=== PATIENT | male | born 2000 | race Caucasian/White ===

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

== ENCOUNTER 2022-02-22 16:33 | Emergency (ER) | payer MEDICAID, OTHER | END 2022-02-22 17:38 | disposition home or self-care (01) | LOC: BURERS 16:33 | DX: B34.9 Viral infection, unspecified (principal); E03.9 Hypothyroidism, unspecified | CPT/HCPCS: 87081; 87430; 99283 ==

== ENCOUNTER 2022-08-07 13:40 | Emergency (ER) | payer OTHER | END 2022-08-07 14:00 | disposition home or self-care (01) | LOC: BURERS 13:40 | DX: J02.9 Acute pharyngitis, unspecified (principal); T36.0X5A Adverse effect of penicillins, initial encounter; E03.9 Hypothyroidism, unspecified | CPT/HCPCS: 99283 ==

== ENCOUNTER 2023-07-17 10:53 | Emergency (ER) | payer OTHER ==
[2023-07-17 11:53] LABS: #Eosinphils 0.9 thou/uL (0.0-0.7); #Monocytes 0.6 thou/uL (0.11-0.59); %Basophils 0.5 % (0.0-1.0); %Eosinophils 12.4 % (0.0-10.0); %Lymphocytes 26.6 % (28.0-48.0); %Monocytes 7.9 % (0.0-4.0); %Neutrophils 52.6 % (31.0-61.0); Hematocrit 43.2 % (42.0-52.0); Hemoglobin 14.5 g/dL (14.0-18.0); Mean Corpuscular HGB CONC 33.6 g/dL (32.0-36.0); Mean Corpuscular Hemoglobin 28.5 pg (25.0-35.0); Mean Corpuscular Volume 84.7 fl (78.0-98.0); Platelet Count 227 10x3/uL (130-400); RBC Distribution Width 11.5 % (11.5-14.5); White Blood Cell (WBC) Count 7.6 10x3/uL (4.8-10.8)
== END 2023-07-17 13:42 | disposition short-term general hospital (02) ==
LOC: BURERS 10:53
DX: M79.662 Pain in left lower leg (principal); E03.9 Hypothyroidism, unspecified; F17.290 Nicotine dependence, other tobacco product, uncomplicated; Z79.899 Other long term (current) drug therapy
CPT/HCPCS: 36415; 85025; 85379; 99284

== ENCOUNTER 2023-08-08 01:09 | Emergency (ER) | payer OTHER ==
[2023-08-08 03:14] LABS: ALT (SGPT) 15 U/L (8-55); AST (SGOT) 21 U/L (5-34); Albumin 4.1 g/dL (3.5-5.0); Alkaline Phosphatase 74 U/L (50-130); Anion Gap 11 mmol/L (10-20); BUN (Urea Nitrogen) 9 mg/dL (8.9-20.6); Bilirubin, Total 0.3 mg/dL (0.2-1.2); Calc. Creatinine Clearance 0 mL/min (70-130); Calcium 8.8 mg/dL (7.8-10.44); Carbon Dioxide 27 mmol/L (22-29); Chloride 105 mmol/L (98-107); Estimated GFR 129; Globulin 2.4 g/dL (2.4-3.5); Glucose 91 mg/dL (70-105); Potassium 3.6 mmol/L (3.5-5.1); Protein, Total 6.5 g/dL (6.0-8.3); Sodium 139 mmol/L (136-145)
== END 2023-08-08 04:19 | disposition home or self-care (01) ==
LOC: BURERS 01:09
DX: E16.2 Hypoglycemia, unspecified (principal)
CPT/HCPCS: 36416; 80053; 84443; 99285; 36415-59

== ENCOUNTER 2024-10-12 11:52 | Emergency (ER) | payer OTHER | END 2024-10-12 12:32 | disposition home or self-care (01) | LOC: BURERS 11:52 | DX: R21 Rash and other nonspecific skin eruption (principal); F17.290 Nicotine dependence, other tobacco product, uncomplicated | CPT/HCPCS: 99282 ==

== ENCOUNTER 2025-02-11 12:18 | Emergency (ER) | payer OTHER ==
[2025-02-11] MEDS ORDERED: cefTRIAXone (ROCEPHIN) 1 GM VIAL ONE (13:26)
== END 2025-02-11 14:27 | disposition home or self-care (01) ==
LOC: BURERS 12:18
DX: S29.011A Strain of muscle and tendon of front wall of thorax, initial encounter (principal); J20.9 Acute bronchitis, unspecified; J02.9 Acute pharyngitis, unspecified; F17.290 Nicotine dependence, other tobacco product, uncomplicated; X58.XXXA Exposure to other specified factors, initial encounter
CPT/HCPCS: 71045; 87081; 87428; 87430; 96374; 96375; J0696; J1885; J2919